=== PATIENT | female | born 1965 | race Caucasian/White ===

== ENCOUNTER → 2017-04-19 | Outpatient (CLI) | payer MEDICARE, MEDICAID ==
[~2017-04-19] MED LIST: AMITRIPTYLINE 550 MG PO; CLONAZEPAM0.5 M1 PO; CYCLOBENZAPRINE10 MG PO; FLEXERIL10 MG PO; FLUOXETINE HCL40 MG PO; LIDODERM1 EACH TP; LYRICA 100 MG100 MG PO; NAPROSYN 500MG500 MG PO; NORCO 325 MG-51 TAB PO
--- NOTE | 2017-04-20 16:15 | RADIOLOGY REPORT PS360 ---
US BREAST-RT COMPLETE W/AXILLA COMPARISON: Additional views right breast 04/14/2017 HISTORY: Possible developing asymmetric density right breast TECHNIQUE: Targeted ultrasound FINDINGS: Ultrasound imaging of the right breast in the circumareolar region shows mildly heterogenic echogenicity consistent with mild diffuse fibrocystic changes as noted on recent mammogram. Scanning gestation nipple shows findings suggesting mild ductal hyperplasia. There is no suspicious cystic or solid lesions seen. There are 2 normal-appearing nodes in the right axilla. IMPRESSION: Unremarkable ultrasound right breast, recommend the patient continue with yearly screening mammography
== END ==
LOC: RAD 14:59
DX: R92.8 Other abnormal and inconclusive findings on diagnostic imaging of breast (principal)

== ENCOUNTER → 2017-07-15 | Day surgery (SDC) | payer MEDICARE, MEDICAID ==
[~2017-07-15] VITALS: Ht 157.5 cm; Wt 58.1 kg
[2017-07-15 08:51] VITALS: BP 127/84
[2017-07-15 09:00] VITALS: BP 142/83
[2017-07-15 09:02] VITALS: BP 127/84
[2017-07-15 09:03] VITALS: BP 126/55
--- NOTE | 2017-07-15 09:07 | Procedure Note ---
Procedure detail Date of procedure: 07/15/17 Anesthesiologist: aKrel Boone Complications: None Pre-procedure diagnosis: Degenerative disease lumbar spine with levels. Lumbar radiculopathy symptoms. Post-procedure diagnosis: Same. Indications for procedure: Very pleasant 52-year-old white female returns our procedural clinic today for a therapeutic lumbar epidural steroid injection L4-5 level. She has responded very well to lumbar epidural steroid injections last year. Her lumbar back pain has returned with some radicular symptoms in the bilateral hips. Procedure detail: Procedure: Lumbar epidural steroid injection under fluoroscopy Informed consent was obtained and the risks and benefits of the procedure were explained to the patient. The patient was taken to the procedure room and noninvasive monitors placed, including noninvasive blood pressure cuff and pulse oximeter. The back was viewed using C-arm Fluoroscopy and prepped using Betadine as a cleansing solution and the L4-L5 interspace was palpated. Skin and subcutaneous tissues were anesthetized using lidocaine 1.5% and a 25-gauge needle. After this, an 18-gauge Touhy epidural needle was placed into the L4-L5 interspace and advanced using fluoroscopic guidance and loss of resistance to air until the epidural space was encountered. After confirmation of needle placement in the epidural space, with dye, a solution containing lidocaine 1.5%, 4 mL and Depo-Medrol 80 mg were incrementally injected into the lumbar epidural space. The patient tolerated the procedure well with no complications. The patient was observed in the Pain Clinic and then discharged home neurologically intact. Plan and disposition: Patient was reevaluated 10 minutes post procedure. She is doing very well. She' ll return to see us in the pain clinic for further evaluation. at [id number]
== END ==
LOC: PM 08:41
PROC: 3E0R3BZ Introduction of Anesthetic Agent into Spinal Canal, Percutaneous Approach (ICD-10-PCS; principal; 2017-07-15)
PROC: 3E0R33Z Introduction of Anti-inflammatory into Spinal Canal, Percutaneous Approach (ICD-10-PCS; 2017-07-15)
DX: M51.16 Intervertebral disc disorders with radiculopathy, lumbar region (principal)